=== PATIENT | female | born 1930 | race Caucasian/White ===

== ENCOUNTER → 2017-02-16 | Day surgery (SDC) | payer OTHER ==
[2017-02-15 11:50] VITALS: Ht 154.9 cm; Wt 56.8 kg
[~2017-02-16] VITALS: Ht 154.9 cm; Wt 56.8 kg
[~2017-02-16] MED LIST: ATROPINE SULFATE 0.1 MG/ML 5ML SYR IV PRN; CHOL1000 PO; CYCLOPENTOLATE HCL 1% OP SOLN PER DROP CHARGE OPL SCH; DORZ1SOL6 OPB; EpHEDrine SULFATE INJ 50 MG/ML AMP IV PRN; EpINEphrine INJ 1MG/ML AMP 1 MG/ML AMP ONE; FENTANYL CITRATE INJ 50 MCG/1 ML 2 ML VIAL IV PRN; FLUMAZENIL 0.1 MG/1 ML 10 ML VIAL IV PRN; HYDROmorphone INJ 2 MG/ML SYR/VIAL IV PRN; LABETALOL HCL IV 5 MG/ML 20ML IV PRN; LACTATED RINGER'S 1000ML 500 ML IV SCH; LIDOCAINE 4% OP SOLN DROP CHARGE ONE; LIDOCAINE 4% OP SOLN DROP CHARGE OPL SCH; LIDOCAINE HCL 1% MPF 2 ML VIAL ONE; MEPERIDINE HCL 25 MG/ML CARP IV PRN; MIDAZOLAM HCL 1 MG/ML 2ML VIAL ONE; MOXIFLOXACIN OPH SOLN PER DROP CHARGE ONE; MOXIFLOXACIN OPH SOLN PER DROP CHARGE OPL SCH; MULT-190 PO; NALOXONE HCL 0.4 MG/1 ML VIAL/CARP IV PRN; NATT100C PO; OMEGA PO; ONDANSETRON INJ 2 MG/ML 2 ML VIAL IV PRN; PATIENT'S ALLERGY INFO NEEDS ENTERED SCH; PHENYLEPHRINE 100MCG/ML 5ML SYR IV PRN; PHENYLEPHRINE HCL 2.5% OP SOLN PER DROP CHARGE OPL SCH; POTA99TA PO; POVIDONE-IODINE OP SOLN 30 ML BTL ONE; PROPARACAINE 0.5% OP SOLN PER DROP CHARGE OPL SCH; TOBRAMYCIN/DEXAMETHASONE OPH OINT PER APPLN CHARGE ONE; TROPICAMIDE 1% OP SOLN PER DROP CHARGE OPL SCH; [UNRECOGNIZED DRUG - OTHER] PO; [UNRECOGNIZED DRUG - OTHER] PO
--- NOTE | 2017-02-16 08:40 | History & Physical Bridge - [place] ---
H&P Re-Evaluation Bridge Note: I have examined the patient, reviewed the History & Physical and in the interval since the performance of the History & Physical I have noted the following changes of clinical significance: No changes noted
[2017-02-16 08:48] VITALS: PULSE 79; TEMP 36.5; O2SAT 97
--- NOTE | 2017-02-16 08:48 | History & Physical Bridge - SC ---
H&P Re-Evaluation Bridge Note: Addendum: We are doing cataract surgery on the left eye today.
[2017-02-16] MEDS: PHENYLEPHRINE HCL 2.5% OP SOLN PER DROP CHARGE OPL SCH ×3 (08:58→09:08)
[2017-02-16] MEDS: TROPICAMIDE 1% OP SOLN PER DROP CHARGE OPL SCH ×3 (08:59→09:09)
[2017-02-16] MEDS: CYCLOPENTOLATE HCL 1% OP SOLN PER DROP CHARGE OPL SCH ×3 (09:00→09:10)
[2017-02-16] MEDS: MOXIFLOXACIN OPH SOLN PER DROP CHARGE OPL SCH ×3 (09:01→09:11)
[2017-02-16 09:35] VITALS: BP 208/124
--- NOTE | 2017-02-16 12:07 | Anesthesiology Progress Note ---
Anesthesia Progress Note Date of Service Feb 16, 2017. Progress Notes The patient is an 86 y/o female who was scheduled for a L cataract procedure today with Dr. Edwards. The patient was noted to have a blood pressure of 215/ 133 and 195/113 on arrival. Her other vital signs were stable. The patient had no chest pain or SOB but stated that she was "worked up" and that is why her blood pressure was elevated. The patient does not take any medicine for blood pressure and became defensive when I asked her about her blood pressure. She stated that her primary physician is Dr. Coburn but she does not see him because she "feels fine." I called and spoke to Dr. Coburn who told me that the patient was seen in his office two years ago and told to go to the hospital because of high blood pressure. The patient refused to go to the hospital at that time and cancelled her follow up appointment. He stated that if her EKG is stable today that he would see her in his office today. A 12 lead EKG was done today that showed normal sinus rhythm rate 79 with cannot r/o ant infarct. After the EKG was performed that patient stated that she would refuse to go to the hospital or to Dr. Coburn's office. She said that she did not believe that her blood pressure was a problem and she would see a doctor when she was ready. I explained that she was at a high risk for stroke, heart attack, kidney disease, and other vascular damage but she was adamant that she did not need blood pressure medicine. I again spoke to Dr. Coburn and he stated that he would see her if she wants to schedule an appointment. The patient signed out against medical advice. Dr. Edwards was aware of the situation.
== END | disposition home or self-care (01) ==
LOC: X.SURG 08:15
PROVIDERS: ATTEND Ophthalmology
DX: H26.9 Unspecified cataract (principal); Z53.09 Procedure and treatment not carried out because of other contraindication

== ENCOUNTER 2019-06-19 19:16 | Inpatient (IN) ==
[2019-06-19 20:01] LABS: Hematocrit (blood only) 36.6 % (37-47); Hemoglobin 12.5 g/dL (12.0-16.0); Mean Corpuscular Hgb Conc 34.2 g/dL (32-36); Mean Corpuscular Volume 80.3 fL (80-100); Mean Platelet Volume 9.8 fL (7.4-10.4); Platelet Count 199 K/uL (130-400); RDW Coefficient of Variation 14.4 % (11.5-14.5); RDW Standard Deviation 41.8 fL (36.4-46.3); Red Blood Count 4.56 M/uL (4.2-5.4); White Blood Count 5.53 K/uL (4.8-10.8)
[2019-06-19 20:05] LABS: iSTAT Creatinine 0.6 mg/dl (0.6-1.3); iSTAT Hemoglobin 13.3 g/dl (12.0-16.0); iSTAT Ionized Calcium 1.17 mmol/l (1.12-1.32); iSTAT Potassium 3.9 mEq/L (3.3-5.0)
[2019-06-19] MEDS ORDERED: OPTIRAY 320 125ml IV PRN (20:15)
[2019-06-19 20:16] LABS: Prothrombin Time 10.5 Seconds (9.0-12.0)
[2019-06-19 20:19] LABS: Alanine Aminotransferase 23 U/L (12-78); Albumin Level 4.4 gm/dl (3.4-5.0); Aspartate Aminotransferase 20 U/L (15-37); BUN Creatinine Ratio 18.1 (10-20); Blood Urea Nitrogen 14 mg/dl (7-18); Calcium 9.5 mg/dl (8.5-10.1); Carbon Dioxide 27 mmol/L (21-32); Chloride 99 mmol/L (98-107); Est GFR (African American) 80.6; Est GFR (Non-African American) 69.5; Glucose 102 mg/dl (70-99); Magnesium 2.4 mg/dl (1.8-2.4); Potassium 3.9 mmol/L (3.5-5.1); Sodium 133 mmol/L (136-145)
[2019-06-19 20:23] LABS: Albumin Globulin Ratio 1.3 (0.9-2); Alkaline Phosphatase 72 U/L (45-117); Basophils # (auto) 0.01 K/uL (0-0.2); Basophils % (auto) 0.2 %; Bilirubin,Total 0.3 mg/dl (0.2-1); Eosinophils # (auto) 0.01 K/uL (0-0.5); Eosinophils % (auto) 0.2 %; Globulin 3.5 gm/dl (2.5-4.0); Immature Granulocytes # (auto) 0.02 K/uL (0.00-0.02); Immature Granulocytes % (auto) 0.4 %; Lymphocytes # (auto) 2.75 K/uL (1.2-3.4); Lymphocytes % (auto) 49.7 %; Monocytes # (auto) 1.38 K/uL (0.11-0.59); Neutrophils # (auto) 1.36 K/uL (1.4-6.5); Neutrophils % (auto) 24.5 %; Total Protein 7.9 gm/dl (6.4-8.2); Troponin I < 0.015 ng/ml (0-0.045)
--- NOTE | 2019-06-19 20:40 | CT Scan Report ---
UNENHANCED CT OF THE BRAIN; CT ANGIOGRAM OF THE BRAIN; CT ANGIOGRAM OF THE NECK CLINICAL HISTORY: Strokelike symptoms. COMPARISON STUDY: No priors. TECHNIQUE: Unenhanced axial CT scan of the brain is performed. Subsequently, following the IV adminis tration of 119 of [address] 320, CT angiogram of the head and neck was performed from the aortic arch t o the vertex. Images are reviewed in the axial, sagittal, and coronal planes. 3-D MIPS images are cre ated and assessed. IV contrast was administered without complication. All measurements were calculate d based on NASCET criteria. A dose lowering technique was utilized adhering to the principles of ALA RA. CT DOSE: 985.00 mGy.cm FINDINGS: Brain parenchyma: There is age-related involutional change noting mild subcortical and periventricula r microangiopathic disease. There is no hemorrhage, mass effect, or evidence of acute territorial isc hemia by CT criteria. There is no evidence of enhancing mass lesion on the angiogram phase images. Th e ventricles, sulci, and cisterns are prominent secondary to involutional change. Esparza-white matter d ifferentiation is preserved. No extra-axial fluid collection is seen. 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 Thoracic aorta: Visualized portions of the thoracic aorta are normal in caliber. The aortic arch demo nstrates standard 3-vessel anatomy. Right carotid arterial system: The right common carotid artery is widely patent, as are the right int ernal and carotid arteries. Mild plaque is noted in the carotid bulb. Left carotid arterial system: The left common carotid artery is widely patent, as are the left environmental engineering intern al and terminal carotid arteries. Mild atherosclerotic plaque is noted in the carotid bulb. 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 The vert ebral arteries are otherwise patent in the neck and codominant Subclavian arteries: Widely patent paradise aterally. Intracranial vasculature: There is atherosclerotic calcification of the cavernous carotid arteries. T here is origin of both posterior cerebral arteries. The internal carotid arteries are patent at the skull base, as are the anterior and middle cerebral arteries bilaterally. The vertebrobasilar sy stem and posterior cerebral arteries are patent. There is atherosclerotic irregularity of the right v ertebral artery at the skull base. The left vertebral artery terminates as the PICA. The right verteb ral artery and the basilar artery are diminutive. Mild atherosclerotic regularity seen throughout the middle cerebral arteries with no foci of high-grade stenosis. The aneurysm Or focal vessel cut off s een throughout the intracranial circulation. Jugular veins: Widely patent bilaterally. Dural sinuses: Patent. Lung apices: Partially visualized upper lobe lung parenchyma appears clear. Soft tissues: The visualized pharyngeal soft tissues are normal in appearance noting angiographic pha se technique. The oropharyngeal airway appears widely patent. Bilateral low-attenuation thyroid measu re up to 1.7 cm. The salivary glands are normal in appearance. No cervical lymphadenopathy is seen. Orbits: The bony orbits are intact. Orbital contents are normal in appearance noting bilateral ocular lens implants. Skeletal structures: The skeletal structures are osteopenic. The calvarium appears intact. The cervic al spine is maintained noting multilevel spondylosis. No lytic or blastic lesion is seen. Sinuses and mastoids: The paranasal sinuses are clear. The mastoid air cells are well pneumatized. IMPRESSION: 1. There is no hemorrhage, mass effect, or evidence of acute territorial ischemia by CT criteria. 2. Unremarkable CT angiogram of the brain. 3. 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 4. Otherwise unremarkable CT angiogram of the neck. Electronically signed by: Arturo Wiley M.D. 06/19/2019 8:39 PM
[2019-06-19] MEDS ORDERED: LORazepam 0.5 MG/1 ML VIAL IV STA (20:54)
[2019-06-19 21:30] LABS: Appearance Urine Clear (Clear); Bilirubin Urine Negative (Negative); Blood Urine Negative (Negative); Color Urine Yellow; Glucose Urine UA Negative (Negative); Ketones Urine Negative (Negative); Leukocyte Esterase Urine Negative (Negative); Nitrite Urine Negative (Negative); Protein Urine Negative (Negative); Specific Gravity Urine 1.017 (1.000-1.030); Urobilinogen Urine Negative (Negative); pH Urine 8.5 (4.5-7.5)
[2019-06-19] MEDS ORDERED: ASPIRIN 81 MG CHEW PO STA (23:58)
[2019-06-20] MEDS ORDERED: LABETALOL HCL IV 5 MG/ML 20ML IV PRN (00:51)
[2019-06-20] MEDS ORDERED: NITROGLYCERIN SL 0.4 MG/TAB TAB SL PRN (00:51)
[2019-06-20] MEDS ORDERED: POLYETHYLENE (MIRALAX) 17 GM PACK PO PRN (00:51)
[2019-06-20] MEDS ORDERED: PHARMACIST DISCHARGE MED REC CONSULT PRN (00:51)
[2019-06-20] MEDS ORDERED: ACETAMINOPHEN 325 MG TAB PO PRN (00:51)
[2019-06-20] MEDS ORDERED: ONDANSETRON INJ 2 MG/ML 2 ML VIAL IV PRN (00:51)
--- NOTE | 2019-06-20 02:37 | History and Physical Report ---
DATE OF ADMISSION: 06/19/2019 CHIEF COMPLAINT: Stroke-like symptoms. HISTORY OF PRESENT ILLNESS: This is an 88-year-old female with past medical history significant for chronic cough, hypertension, GERD, anxiety state, presents with stroke-like symptoms. The patient lives alone. She says she is independent. She drives car. Actually, she went to [place] in the car and she moved her stuff in the house today. She was talking to her neighbor when suddenly she started feeling extremely dizzy. The neighbor told her she had a funny face and also had some questionable slurred speech, so they called her nephew and brought her into the hospital. In the ER, her blood pressure was very high sbp in 250's. She was started on nicardipine drip and her symptoms resolved. Currently, she is talking fine. Speech is clear. CT of the head was unremarkable. CTA of the brain showed high-grade stenosis of the origin of left vertebral artery. CTA of the neck was unremarkable. Currently, blood pressure improved with nicardipine drip. Currently, patient's speech is clear. Denies any headache, no blurred vision, no earache, no sore throat, no difficulty swallowing, no chest pain, no shortness of breath. She has some dry cough. No nausea, no abdominal pain. Normal bowel and bladder movements. She is ambulating in the ER to go to bathroom, resting comfortably. ALLERGIES: BACITRACIN, NEOMYCIN, POLYMYXIN B. PAST MEDICAL HISTORY: As mentioned above. PAST SURGICAL HISTORY: Hemorrhoidectomy and banding, appendectomy, sinus surgery, ultrasound-guided breast biopsy. MEDICATIONS: The patient is on lisinopril 20 mg p.o. daily, Cosopt 1 drop both eyes b.i.d., Xalatan 1 drop each eye at bedtime, chlorpheniramine 4 mg 1 tablet q.i.d. FAMILY HISTORY: Significant for father has hypertension and lung disorder. Sister has hypertension. SOCIAL HISTORY: , living alone. No smoking, no alcohol, no drug use. REVIEW OF SYMPTOMS: As per HPI. Rest of review of systems is negative. PHYSICAL EXAMINATION: GENERAL: The patient is alert and oriented, not in acute distress. VITAL SIGNS: Temperature 36.6, pulse 89, respiratory rate 20, currently blood pressure 154/87, when she came in was 246/119, oxygen 99% room air. HEENT: No pallor, no icterus. Pupils equal, round, reactive to light. NECK: No JVD, no neck masses, no carotid bruits. CARDIOVASCULAR: S1, S2 heard, regular rate and rhythm, no murmur, no gallop. RESPIRATORY SYSTEM: Normal AP diameter. No thyromegaly. No wheezing, no crackles. ABDOMEN: Soft, bowel sounds present, nontender. No distention. CENTRAL NERVOUS SYSTEM: Cranial nerves II-XII grossly intact. Power 4/5 in all extremities. Coordination was normal. Megvpb-pt-[id number] test normal. No pronator drift. EXTREMITIES: No edema, no erythema. LABORATORY DATA: WBC 5.5, hemoglobin 12.5, hematocrit 36.6, platelets 199. PT 10.5, INR 1, APTT 28. Sodium 133, potassium 3.9, chloride 99, bicarbonate 27, BUN 14, creatinine 0.7, serum glucose 102, calcium 9.5, magnesium 2.4, total bilirubin 0.3, AST 20, ALT 23, alkaline phosphatase 75. Troponin I less than 0.015. Urinalysis negative. CT of the head unremarkable. 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 CTA Neck unremarkable. EKG: Normal sinus rhythm with rate of 76, no acute ST changes seen. ASSESSMENT AND PLAN: This is an 88-year-old female who presents with stroke-like symptoms,possible transient ischemic attack with uncontrolled blood pressure. Had questionable slurred speech and facial droop, but her symptoms resolved now. Blood pressure has come down on nicardipine drip. Will stop the drip and place on iv labetalol pr. Continue home lisinopril. We will get MRI scan, echocardiogram, speech evaluation, and PT/OT and neuro evaluation. Monitor closely on tele floor. Will adjust her blood pressure meds while she is in the hospital. Deep venous thrombosis prophylaxis, SCDs. DISPOSITION: Admit to tele floor. Expect to discharge home and follow with family doctor. PT and OT prior to discharge. Social service to help with discharge planning. ANDREW
--- NOTE | 2019-06-20 03:00 | Emergency Department Note ---
Entered by Lynne Royal acting as a scribe for History of Present Illness General Chief complaint: TIA Symptoms Stated complaint: SLURRED SPEECH, DIZZY, LT ARM TINGLING INTO LEG Time Seen by Provider: 06/19/19 19:23 Source: patient Mode of arrival: EMS Limitations: no limitations History of Present Illness Onset (ago): hour(s) less than 1 Location: head Radiation: non-radiation Pain Consistency: + now resolved Maximum Pain Intensity: 0 Relieved By: + none Exacerbated By: + none Associated symptoms: + other (+numbness and tingling in left side of face, +speech slurring, -abdominal pain); no headaches Treatments prior to arrival: none The patient is an 88year old female who presents to the ED with complaints of stroke symptoms. She reports approximately 45 minutes ago, she got dizzy and experienced speech slurring and numbness and tingling in the left side of her face. She notes she was speaking with her neighbor when the symptoms started. She states she feels much better here in the ED. She never lost the ability to ambulate during the episode. The patient admits to a history of hypertension and states she took her BP medication this morning. She notes she has not eaten much today and "worked all day long" inside her home today. She denies any history of prior stroke. She denies any headache or abdominal pain. Home Medications Home Medications Medication Instructions Recorded Confirmed Type Zioptan (PF) 1 drp OPHTHALMIC (EYE) PM 12/29/18 06/19/19 History dorzolamide-timolol (PF) 1 drp OPHTHALMIC (EYE) BID 12/29/18 06/19/19 History lisinopril 20 mg PO DAILY 06/19/19 06/19/19 History prednisolone acetate [Pred Forte] 1 drp OPB QID 06/19/19 06/19/19 History Allergies Allergy/AdvReac Type Severity Reaction Status Date / Time bacitracin Allergy Unknown Anaphylaxis Verified 06/19/19 20:39 neomycin Allergy Unknown Anaphylaxis Verified 06/19/19 20:39 polymyxin B Allergy Unknown Anaphylaxis Verified 06/19/19 20:39 Past Med/Surg History Medical History Exertional shortness of breath Glaucoma Hearing deficit BL COBB Surgical History H/O removal of cyst FROM SCALP History of appendectomy History of cataract surgery History of hemorrhoidectomy History of lumpectomy of left breast History of sinus surgery Social History Preferred Language: Citizen Of [place] Communication Ability: Effective Ride Attendant Required: No Beliefs That Will Affect Care: None Current Living Situation: Alone Other Information That Helps Us Care for You: No Feels Safe at Home: Yes Safety Concerns: Feels Safe At This Time Smoking Status: Never smoker Second Hand Exposure: No ; Hx Alcohol Use: No Hx Substance Use: No Review of Systems See HPI for pertinent positives & negatives. and A total of 10 systems reviewed and were otherwise negative Physical Exam Vital Signs Vital Signs - 24 hr 06/19/19 19:18 06/19/19 19:32 06/19/19 19:38 Temperature 36.6 C Temperature Source Oral Sepsis Recent Fever Within 48 Hours No Sepsis New/Unexplained Change in Mental Status No Sepsis Action Taken by Nursing No Action Required Pulse Rate 78 86 78 Pulse Rate [Right Finger] Pulse Rate from SpO2 Sensor 78 Respiratory Rate 18 27 H 28 H Respiratory Effort / Characteristics Respiratory Depth Respiratory Pattern Blood Pressure 257/123 H 248/109 H Blood Pressure [Right Arm] Blood Pressure Mean 167 155 Blood Pressure Mean [Right Arm] Blood Pressure Position [Right Arm] Pulse Oximetry 99 99 Oxygen Delivery Method Room Air 06/19/19 19:45 06/19/19 20:00 06/19/19 20:01 Temperature Temperature Source Sepsis Recent Fever Within 48 Hours Sepsis New/Unexplained Change in Mental Status Sepsis Action Taken by Nursing Pulse Rate 74 85 77 Pulse Rate [Right Finger] Pulse Rate from SpO2 Sensor 74 Respiratory Rate 24 19 26 H Respiratory Effort / Characteristics Respiratory Depth Respiratory Pattern Blood Pressure 246/119 H Blood Pressure [Right Arm] Blood Pressure Mean 161 Blood Pressure Mean [Right Arm] Blood Pressure Position [Right Arm] Pulse Oximetry 100 Oxygen Delivery Method 06/19/19 20:04 06/19/19 20:27 06/19/19 20:30 Temperature Temperature Source Sepsis Recent Fever Within 48 Hours Sepsis New/Unexplained Change in Mental Status Sepsis Action Taken by Nursing Pulse Rate 91 H 87 Pulse Rate [Right Finger] 72 Pulse Rate from SpO2 Sensor Respiratory Rate 18 21 18 Respiratory Effort / Characteristics Non-Labored Spontaneous Respiratory Depth Normal Respiratory Pattern Regular Blood Pressure Blood Pressure [Right Arm] 246/119 H Blood Pressure Mean Blood Pressure Mean [Right Arm] 161 Blood Pressure Position [Right Arm] Lying Pulse Oximetry 99 Oxygen Delivery Method Room Air 06/19/19 20:32 06/19/19 20:45 06/19/19 21:00 Temperature Temperature Source Sepsis Recent Fever Within 48 Hours Sepsis New/Unexplained Change in Mental Status Sepsis Action Taken by Nursing Pulse Rate 81 98 H 90 Pulse Rate [Right Finger] Pulse Rate from SpO2 Sensor 81 Respiratory Rate 24 30 H 23 Respiratory Effort / Characteristics Respiratory Depth Respiratory Pattern Blood Pressure 231/107 H 230/117 H Blood Pressure [Right Arm] Blood Pressure Mean 148 154 Blood Pressure Mean [Right Arm] Blood Pressure Position [Right Arm] Pulse Oximetry 99 Oxygen Delivery Method 06/19/19 21:01 06/19/19 21:06 06/19/19 21:15 Temperature Temperature Source Sepsis Recent Fever Within 48 Hours Sepsis New/Unexplained Change in Mental Status Sepsis Action Taken by Nursing Pulse Rate 93 H 95 H 91 H Pulse Rate [Right Finger] Pulse Rate from SpO2 Sensor Respiratory Rate 22 28 H 20 Respiratory Effort / Characteristics Respiratory Depth Respiratory Pattern Blood Pressure 204/97 H 203/95 H 199/97 H Blood Pressure [Right Arm] Blood Pressure Mean 132 131 131 Blood Pressure Mean [Right Arm] Blood Pressure Position [Right Arm] Pulse Oximetry Oxygen Delivery Method 06/19/19 21:30 06/19/19 21:31 06/19/19 21:45 Temperature Temperature Source Sepsis Recent Fever Within 48 Hours Sepsis New/Unexplained Change in Mental Status Sepsis Action Taken by Nursing Pulse Rate 88 88 84 Pulse Rate [Right Finger] Pulse Rate from SpO2 Sensor 89 87 86 Respiratory Rate 27 H 26 H 22 Respiratory Effort / Characteristics Respiratory Depth Respiratory Pattern Blood Pressure 166/81 H 185/86 H Blood Pressure [Right Arm] Blood Pressure Mean 109 119 Blood Pressure Mean [Right Arm] Blood Pressure Position [Right Arm] Pulse Oximetry 95 96 94 Oxygen Delivery Method 06/19/19 21:55 06/19/19 22:01 06/19/19 22:15 Temperature Temperature Source Sepsis Recent Fever Within 48 Hours Sepsis New/Unexplained Change in Mental Status Sepsis Action Taken by Nursing Pulse Rate 92 H 87 88 Pulse Rate [Right Finger] Pulse Rate from SpO2 Sensor 92 H Respiratory Rate 21 16 19 Respiratory Effort / Characteristics Respiratory Depth Respiratory Pattern Blood Pressure 185/86 H 165/117 H 149/81 H Blood Pressure [Right Arm] Blood Pressure Mean 119 133 103 Blood Pressure Mean [Right Arm] Blood Pressure Position [Right Arm] Pulse Oximetry 99 Oxygen Delivery Method 06/19/19 22:30 06/19/19 22:45 06/19/19 23:00 Temperature Temperature Source Sepsis Recent Fever Within 48 Hours Sepsis New/Unexplained Change in Mental Status Sepsis Action Taken by Nursing Pulse Rate 79 78 81 Pulse Rate [Right Finger] Pulse Rate from SpO2 Sensor Respiratory Rate 26 H 29 H 27 H Respiratory Effort / Characteristics Respiratory Depth Respiratory Pattern Blood Pressure 147/70 H Blood Pressure [Right Arm] Blood Pressure Mean 95 Blood Pressure Mean [Right Arm] Blood Pressure Position [Right Arm] Pulse Oximetry Oxygen Delivery Method 06/19/19 23:01 06/19/19 23:15 06/19/19 23:16 Temperature Temperature Source Sepsis Recent Fever Within 48 Hours Sepsis New/Unexplained Change in Mental Status Sepsis Action Taken by Nursing Pulse Rate 82 89 91 H Pulse Rate [Right Finger] Pulse Rate from SpO2 Sensor Respiratory Rate 28 H 22 18 Respiratory Effort / Characteristics Respiratory Depth Respiratory Pattern Blood Pressure 134/65 127/76 Blood Pressure [Right Arm] Blood Pressure Mean 88 93 Blood Pressure Mean [Right Arm] Blood Pressure Position [Right Arm] Pulse Oximetry Oxygen Delivery Method 06/19/19 23:23 Temperature Temperature Source Sepsis Recent Fever Within 48 Hours Sepsis New/Unexplained Change in Mental Status Sepsis Action Taken by Nursing Pulse Rate 89 Pulse Rate [Right Finger] Pulse Rate from SpO2 Sensor Respiratory Rate 23 Respiratory Effort / Characteristics Respiratory Depth Respiratory Pattern Blood Pressure 154/87 H Blood Pressure [Right Arm] Blood Pressure Mean 109 Blood Pressure Mean [Right Arm] Blood Pressure Position [Right Arm] Pulse Oximetry Oxygen Delivery Method GENERAL: Awake, alert, well-appearing, in no acute distress HENT: Normocephalic, atraumatic. Oropharynx unremarkable. EYES: Normal conjunctiva. Sclera non-icteric. NECK: Supple. No nuchal rigidity. FROM. No JVD. RESPIRATORY: Clear to auscultation. CARDIAC: Regular rate, normal rhythm. Extremities warm and well perfused. Pulses equal. ABDOMEN: Soft, non-distended. No tenderness to palpation. No rebound or guarding. No masses. RECTAL: Deferred. MUSCULOSKELETAL: Chest examination reveals no tenderness. The back is symmetrical on inspection without obvious abnormality. There is no CVA tenderness to palpation. No joint edema. LOWER EXTREMITIES: Calves are equal size bilaterally and non-tender. No edema. No discoloration. NEURO: Normal sensorium. No sensory or motor deficits noted. SKIN: No rash or jaundice noted. Course 1926: The patient was evaluated in room B12B and a complete history and physical were performed. 2104: I reevaluated the patient. I discussed her results and my recommendation she remain in the hospital for further evaluation and management and she verbalized complete understanding and agreement. 2214: [facility] The patient will be further evaluated. Consultations Consultation #1: I [facility] the [facility] The patient will be further evaluated. Time: 22:15 Administered Medications Discontinued Medications Aspirin (Aspirin Chew) 324 mg PO NOW STA Stop: 06/19/19 23:59 Last Admin: 06/20/19 00:10 Dose: 324 mg Documented by: [id number] Nicardipine HCl 25 mg/ Sodium (Chloride) 250 mls @ 50 mls/hr IV .Q5H DAMI; Protocol Stop: 07/19/19 19:44 Last Titration: 06/19/19 23:39 Dose: 0 mg/hr, 0 mls/hr Documented by: [id number] Titration: 06/19/19 22:41 Dose: 5 mg/hr, 50 mls/hr Documented by: [id number] Titration: 06/19/19 22:01 Dose: 7.5 mg/hr, 75 mls/hr Documented by: [id number] Admin: 06/19/19 20:29 Dose: 5 mg/hr, 50 mls/hr Documented by: [id number] Cosigned by: [id number] Lorazepam (Ativan) 0.5 mg in 1 mls @ 1 mls/min IV NOW STA Stop: 06/19/19 20:55 Last Admin: 06/19/19 21:24 Dose: 1 mls/min Documented by: [id number] Ioversol (Optiray 320 125ml) 119 ml IV ONCE PRN PRN Reason: Interaction Checking Stop: 06/23/19 20:14 Last Admin: 06/19/19 20:15 Dose: 119 ml Documented by: [id number] Medical Decision Making Differential Diagnosis Differential Diagnosis includes but is not limited to dehydration, stroke, anemia, hypoglycemia, hyponatremia, hypernatremia, urinary tract infection, pneumonia, bronchitis, sepsis, gastroenteritis, additional abdominal pathology, metabolic abnormalities and infections. Medical Records Attestation: I reviewed the patient's medical records. Home Medications Current Medication List: was personally reviewed by me Laboratory Data Attestation: I reviewed the patient's lab results. Result diagrams: 06/19/19 19:40 06/19/19 19:40 Lab Results 06/19/19 06/19/19 06/19/19 Range/Units 19:40 19:40 19:40 WBC 5.53 (4.8-10.8) K/uL RBC 4.56 (4.2-5.4) M/uL Hgb 12.5 (12.0-16.0) g/dL POC Hgb (12.0-16.0) g/dl Hct 36.6 L (37-47) % POC Hct (37-47) % MCV 80.3 (80-100) fL MCH 27.4 (25-34) pg MCHC 34.2 (32-36) g/dL RDW Std Deviation 41.8 (36.4-46.3) fL RDW Coeff of Андрей 14.4 (11.5-14.5) % Plt Count 199 (130-400) K/uL MPV 9.8 (7.4-10.4) fL Immature Gran % (Auto) 0.4 % Neut % (Auto) 24.5 % Lymph % (Auto) 49.7 % [place] % (Auto) 25.0 % Eos % (Auto) 0.2 % Baso % (Auto) 0.2 % Immature Gran # (Auto) 0.02 (0.00-0.02) K/uL Neut # (Auto) 1.36 L (1.4-6.5) K/uL Lymph # (Auto) 2.75 (1.2-3.4) K/uL [place] # (Auto) 1.38 H (0.11-0.59) K/uL Eos # (Auto) 0.01 (0-0.5) K/uL Baso # (Auto) 0.01 (0-0.2) K/uL PT 10.5 (9.0-12.0) Seconds INR 1.0 (0.9-1.1) APTT 28.0 (21.0-31.0) Seconds PTT Ratio 1.0 POC Sodium (135-144) mEq/L Sodium 133 L (136-145) mmol/L POC Potassium (3.3-5.0) mEq/L Potassium 3.9 (3.5-5.1) mmol/L POC Chloride (101-112) mEq/L Chloride 99 (98-107) mmol/L Carbon Dioxide 27 (21-32) mmol/L POC Total CO2 (24-31) mEq/l Anion Gap 7.0 (3-11) POC Anion Gap (16-25) mmol/L POC BUN (7-18) mg/dl BUN 14 (7-18) mg/dl Creatinine 0.76 (0.6-1.2) mg/dl POC Creatinine (0.6-1.3) mg/dl Est Cr Clr Drug Dosing 36.0 ml/min Est GFR ( Amer) 80.6 Est GFR (Non-Af Amer) 69.5 BUN/Creatinine Ratio 18.1 (10-20) Glucose 102 H (70-99) mg/dl POC Glucose (other) (70-99) mg/dl Calcium 9.5 (8.5-10.1) mg/dl POC Ioniz Calcium [place] (1.12-1.32) mmol/l Magnesium 2.4 (1.8-2.4) mg/dl Total Bilirubin 0.3 (0.2-1) mg/dl AST 20 (15-37) U/L ALT 23 (12-78) U/L Alkaline Phosphatase 72 (45-117) U/L Troponin I < 0.015 (0-0.045) ng/ml Total Protein 7.9 (6.4-8.2) gm/dl Albumin 4.4 (3.4-5.0) gm/dl Globulin 3.5 (2.5-4.0) gm/dl Albumin/Globulin Ratio 1.3 (0.9-2) Urine Color Urine Appearance (Clear) Urine pH (4.5-7.5) Ur Specific [place] (1.000-1.030) Urine Protein (Negative) Urine Glucose (UA) (Negative) Urine Ketones (Negative) Urine Blood (Negative) Urine Nitrite (Negative) Urine Bilirubin (Negative) Urine Urobilinogen (Negative) Ur Leukocyte Esterase (Negative) 06/19/19 06/19/19 Range/Units 19:40 19:46 WBC (4.8-10.8) K/uL RBC (4.2-5.4) M/uL Hgb (12.0-16.0) g/dL POC Hgb 13.3 (12.0-16.0) g/dl Hct (37-47) % POC Hct 39 (37-47) % MCV (80-100) fL MCH (25-34) pg MCHC (32-36) g/dL RDW Std Deviation (36.4-46.3) fL RDW Coeff of Андрей (11.5-14.5) % Plt Count (130-400) K/uL MPV (7.4-10.4) fL Immature Gran % (Auto) % Neut % (Auto) % Lymph % (Auto) % [place] % (Auto) % Eos % (Auto) % Baso % (Auto) % Immature Gran # (Auto) (0.00-0.02) K/uL Neut # (Auto) (1.4-6.5) K/uL Lymph # (Auto) (1.2-3.4) K/uL [place] # (Auto) (0.11-0.59) K/uL Eos # (Auto) (0-0.5) K/uL Baso # (Auto) (0-0.2) K/uL PT (9.0-12.0) Seconds INR (0.9-1.1) APTT (21.0-31.0) Seconds PTT Ratio POC Sodium 131 L (135-144) mEq/L Sodium (136-145) mmol/L POC Potassium 3.9 (3.3-5.0) mEq/L Potassium (3.5-5.1) mmol/L POC Chloride 96 L (101-112) mEq/L Chloride (98-107) mmol/L Carbon Dioxide (21-32) mmol/L POC Total CO2 22 L (24-31) mEq/l Anion Gap (3-11) POC Anion Gap 18.0 (16-25) mmol/L POC BUN 14 (7-18) mg/dl BUN (7-18) mg/dl Creatinine (0.6-1.2) mg/dl POC Creatinine 0.6 (0.6-1.3) mg/dl Est Cr Clr Drug Dosing ml/min Est GFR ( Amer) Est GFR (Non-Af Amer) BUN/Creatinine Ratio (10-20) Glucose (70-99) mg/dl POC Glucose (other) 105 H (70-99) mg/dl Calcium (8.5-10.1) mg/dl POC Ioniz Calcium [place] 1.17 (1.12-1.32) mmol/l Magnesium (1.8-2.4) mg/dl Total Bilirubin (0.2-1) mg/dl AST (15-37) U/L ALT (12-78) U/L Alkaline Phosphatase (45-117) U/L Troponin I (0-0.045) ng/ml Total Protein (6.4-8.2) gm/dl Albumin (3.4-5.0) gm/dl Globulin (2.5-4.0) gm/dl Albumin/Globulin Ratio (0.9-2) Urine Color Yellow Urine Appearance Clear (Clear) Urine pH 8.5 H (4.5-7.5) Ur Specific [place] 1.017 (1.000-1.030) Urine Protein Negative (Negative) Urine Glucose (UA) Negative (Negative) Urine Ketones Negative (Negative) Urine Blood Negative (Negative) Urine Nitrite Negative (Negative) Urine Bilirubin Negative (Negative) Urine Urobilinogen Negative (Negative) Ur Leukocyte Esterase Negative (Negative) Imaging Data Radiologist's Impression: Radiology results as stated below per my review and the radiologist's interpretation: UNENHANCED CT OF THE BRAIN; CT ANGIOGRAM OF THE BRAIN; CT ANGIOGRAM OF THE NECK CLINICAL HISTORY: Strokelike symptoms. COMPARISON STUDY: No priors. TECHNIQUE: Unenhanced axial CT scan of the brain is performed. Subsequently, following the IV administration of 119 of Optiray 320, CT angiogram of the head and neck was performed from the aortic arch to the vertex. Images are reviewed in the axial, sagittal, and coronal planes. 3-D MIPS images are created and assessed. IV contrast was administered without complication. All measurements were calculated based on NASCET criteria. A dose lowering technique was utilized adhering to the principles of ALARA. CT DOSE: 985.00 mGy.cm FINDINGS: Brain parenchyma: There is age-related involutional change noting mild subcor tical and periventricular microangiopathic disease. There is no hemorrhage, mass effect, or evidence of acute territorial ischemia by CT criteria. There is no evidence of enhancing mass lesion on the angiogram phase images. The ventricles, sulci, and cisterns are prominent secondary to involutional change. Esparza-white matter differentiation is preserved. No extra-axial fluid collection is seen. 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 Thoracic aorta: Visualized portions of the thoracic aorta are normal in caliber. The aortic arch demonstrates standard 3-vessel anatomy. Right carotid arterial system: The right common carotid artery is widely patent, as are the right internal and carotid arteries. Mild plaque is noted in the carotid bulb. Left carotid arterial system: The left common carotid artery is widely patent, as are the left internal and terminal carotid arteries. Mild atherosclerotic plaque is noted in the carotid bulb. 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 The vertebral arteries are otherwise patent in the neck and codominant Subclavian arteries: Widely patent bilaterally. Intracranial vasculature: There is atherosclerotic calcification of the cavernous carotid arteries. There is origin of both posterior cerebral arteries. The internal carotid arteries are patent at the skull base, as are the anterior and middle cerebral arteries bilaterally. The vertebrobasilar system and posterior cerebral arteries are patent. There is atherosclerotic irregularity of the right vertebral artery at the skull base. The left vertebral artery terminates as the PICA. The right vertebral artery and the basilar artery are diminutive. Mild atherosclerotic regularity seen throughout the middle ce rebral arteries with no foci of high-grade stenosis. The aneurysm Or focal vessel cut off seen throughout the intracranial circulation. Jugular veins: Widely patent bilaterally. Dural sinuses: Patent. Lung apices: Partially visualized upper lobe lung parenchyma appears clear. Soft tissues: The visualized pharyngeal soft tissues are normal in appearance noting angiographic phase technique. The oropharyngeal airway appears widely patent. Bilateral low-attenuation thyroid measure up to 1.7 cm. The salivary glands are normal in appearance. No cervical lymphadenopathy is seen. Orbits: The bony orbits are intact. Orbital contents are normal in appearance noting bilateral ocular lens implants. Skeletal structures: The skeletal structures are osteopenic. The calvarium appears intact. The cervical spine is maintained noting multilevel spondylosis. No lytic or blastic lesion is seen. Sinuses and mastoids: The paranasal sinuses are clear. The mastoid air cells are well pneumatized. IMPRESSION: 1. There is no hemorrhage, mass effect, or evidence of acute territorial ischemia by CT criteria. 2. Unremarkable CT angiogram of the brain. 3. 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 4. Otherwise unremarkable CT angiogram of the neck. Electronically signed by: Arturo Wiley M.D. 06/19/2019 8:39 PM ECG Data Attestation: I personally reviewed and interpreted this ECG as follows: Indication: weakness Rate (beats per minute): 76 Rhythm: normal sinus Findings: no ST depression and no ST elevation Blood Pressure Blood Pressure Findings: Elevated blood pressure Blood Pressure Disposition: further management by hospitalist MDM Narrative This is a 88-year-old female who presents emergency department after what appears to be a TIA. The patient was aphasic with a facial droop however her symptoms have currently resolved. Despite this her blood pressure remains significantly elevated here in the emergency department. Because of this the patient was placed on a nicardipine drip. The patient currently has no complaints however does appear very anxious. She was given some Ativan here in the emergency department. Repeat examination revealed improvement the patient's symptoms. CAT scan of the head does not show any acute process however the patient does have a stenosis in her artery on CTA. She does not have an elevation in her white blood cell count has a normal renal profile. I did discuss the case with the hospitalist service who did agree to admit the patient. Patient family were in agreement with the treatment plan. Impression & Plan TIA (transient ischemic attack), Hypertensive urgency Critical Care Time I have personally spent greater than 30 minutes of critical care time in the direct management of this patient. This includes bedside care, interpretation of diagnostic studies, and testing, discussion with consultants, patient, and family members, and other required patient management activities. This 30 m inutes is in excess of all separately billable procedures. Discharge Plan Visit Data *Final* Discharge Date/Time: 06/20/19 00:21 Chief Complaint: TIA Symptoms Stated Complaint: SLURRED SPEECH, DIZZY, LT ARM TINGLING INTO LEG ED Provider: Jem Nelson Discharge Problem: TIA (transient ischemic attack), Hypertensive urgency Patient Disposition: Admitted As Inpatient Discharge Instructions Interventions: ED Discharge Assessment Last Done: 06/20/19 00:21 The scribe's documentation has been prepared under my direction and personally reviewed by me in its entirety. I confirm that the note above accurately reflects all work, treatment, procedures, and medical decision making performed by me.
[2019-06-20] MEDS ORDERED: GADOBUTROL 65ML VIAL IV PRN (05:49)
[2019-06-20 06:51] LABS: Basophils # (auto) 0.01 K/uL (0-0.2); Basophils % (auto) 0.2 %; Eosinophils # (auto) 0.01 K/uL (0-0.5); Eosinophils % (auto) 0.2 %; Hematocrit (blood only) 37.9 % (37-47); Hemoglobin 12.8 g/dL (12.0-16.0); Immature Granulocytes # (auto) 0.02 K/uL (0.00-0.02); Immature Granulocytes % (auto) 0.4 %; Lymphocytes # (auto) 1.68 K/uL (1.2-3.4); Lymphocytes % (auto) 30.5 %; Mean Corpuscular Hgb Conc 33.8 g/dL (32-36); Mean Platelet Volume 9.5 fL (7.4-10.4); Monocytes # (auto) 1.82 K/uL (0.11-0.59); Monocytes % (auto) 33.1 %; Neutrophils # (auto) 1.96 K/uL (1.4-6.5); Neutrophils % (auto) 35.6 %; Platelet Count 192 K/uL (130-400); RDW Coefficient of Variation 14.2 % (11.5-14.5); RDW Standard Deviation 41.4 fL (36.4-46.3); Red Blood Count 4.74 M/uL (4.2-5.4)
--- NOTE | 2019-06-20 06:53 | Magnetic Resonance Report ---
MR brain wo/w con CLINICAL HISTORY: tia mental status change COMPARISON STUDY: No previous studies for comparison. TECHNIQUE: Utilizing a 1.5 Julisa magnet and dedicated coil, multiplanar, multiecho imaging of the br ain was performed pre and postcontrast administration. IV administration of 8 mL of Gadavist contras t was uneventful. FINDINGS: Diffusion images are negative for an acute ischemic event. Findings of age-related atrophy and chronic small vessel change throughout both cerebral hemispheres. Slight compensatory prominence of the ventricular system. Internal auditory canals are unremarkable. Sella and parasellar regions are unremarkable. IMPRESSION: 1. No acute process. 2. Age-related atrophy and chronic small vessel change The above report was generated using voice recognition software. It may contain grammatical, syntax or spelling errors. Electronically signed by: Del Chisholm M.D. 06/20/2019 6:51 AM
[2019-06-20 06:55] LABS: Estimated Average Glucose 123 mg/dl; Hemoglobin A1C 5.9 % (4.5-5.6)
[2019-06-20 07:26] LABS: BUN Creatinine Ratio 15.6 (10-20); Calcium 9.2 mg/dl (8.5-10.1); Creatinine Clr Calc Pharmacy 38.6 ml/min; Est GFR (African American) 87.5; Est GFR (Non-African American) 75.5; Potassium 3.7 mmol/L (3.5-5.1)
[2019-06-20] MEDS: ATORVASTATIN 40 MG TAB PO SCH (08:35)
[2019-06-20] MEDS: ASPIRIN 81 MG ECTAB PO SCH (08:35)
[2019-06-20] MEDS: DORZOLAMIDE/TIMOLOL 22.3/6.8MG/ML 10 ML BTL OP SCH ×2 (08:35→17:39)
[2019-06-20] MEDS ORDERED: LISINOPRIL 20 MG TAB PO SCH (09:00)
[2019-06-20] MEDS: PREDNISOLONE ACETATE 1% OP SCH ×4 (12:38→20:22)
--- NOTE | 2019-06-20 16:04 | Neurology Consultation ---
Date of Consultation June 20, 2019 Assessment & Plan (1) TIA (transient ischemic attack): 1. hypertensive - recurrent TIA 2. optimize HTN, HLD, DM LDL <70 3. start aspirin 81 mg only 4. TTE- no ASD 5. PT/OT speech for discharge planning follow up with neurology 4-6 weeks Leticia Woflf PAC schedule (2) Hypertensive urgency: as above Supervising Physician Co-Signing Physician Notes Patient was seen and examined. Patient awake in bed. Family at bedside. Reports feeling dizzy yesterday with certain head positions and some changes in speech. Denies dizziness at this time. She reports history of labile blood pressures and difficulty sleeping on he back due to neck pain. On examine her speech is clear. Comprehension is intact. No facial asymmetry. Tongue midline. No ataxia or tremor. No clonus. MRI brain reviewed and Negative for acute ischemic stroke. CTA head and neck shows high grade stenosis of the left ICA. A 88 year old woman admitted with accelerated blood pressures and reported intermittent dizziness and speech changes. DDx: Hypertensive encephalopathy Vs TIA (less likely). CTA head and neck shows high grade left vertebral stenosis (likely incidental). - Recommend normalization of blood pressures gradually. SBP goal< 140 mm Hg, DBP< 90 mm Hg - Recommend starting ASA and high intensity statin - TTE with SHunt study - Telemetry - Please check HA1c and TSH if not already performed History of Present Illness Reason for Consultation: recurrent TIA Requesting Physician: Jj Martinez MD Attending Physician: Jj Martinez MD History of Present Illness Maggi is a 88 year old female with PMH - chronic cough, hypertension, GERD, anxiety state, presents with stroke-like symptoms. She lives alone and is independent and still drives. She was in [place] talking to a neighbor when she started feeling dizzy. The neighbor told her she had a funny face and also had some questionable slurred speech, so they called her nephew and brought her into the hospital. In the ER, her blood pressure SBP was 250's. She was started on nicardipine drip and her symptoms resolved. She states she wants to go home but she know she needs to stay until tomorrow. denies CP, SOB, abdominal pain, one sided weakness, numbness tingling, N, V, slurred speech, vision changes, swallowing issues. Allergies Allergy/AdvReac Type Severity Reaction Status Date / Time bacitracin Allergy Unknown Anaphylaxis Verified 06/19/19 20:39 neomycin Allergy Unknown Anaphylaxis Verified 06/19/19 20:39 polymyxin B Allergy Unknown Anaphylaxis Verified 06/19/19 20:39 Home Medications Home Medications Medication Instructions Recorded Confirmed Type Zioptan (PF) 1 drp OPHTHALMIC (EYE) PM 12/29/18 06/19/19 History dorzolamide-timolol (PF) 1 drp OPHTHALMIC (EYE) BID 12/29/18 06/19/19 History lisinopril 20 mg PO DAILY 06/19/19 06/19/19 History prednisolone acetate [Pred Forte] 1 drp OPB QID 06/19/19 06/19/19 History Patient History Medical History Exertional shortness of breath Glaucoma Hearing deficit BL COBB Surgical History H/O removal of cyst FROM SCALP History of appendectomy History of cataract surgery History of hemorrhoidectomy History of lumpectomy of left breast History of sinus surgery Social History Preferred Language: Finnish Communication Ability: Effective Ladies' Locker Room Attendant Required: No Beliefs That Will Affect Care: None marital status: / Current Living Situation: Alone Other Information That Helps Us Care for You: No Feels Safe at Home: Yes Safety Concerns: Feels Safe At This Time Smoking Status: Never smoker Second Hand Exposure: No ; Hx Alcohol Use: No Hx Substance Use: No Physical Exam Physical Exam: Physical Exam: Constitutional: appearance nourished, healthy and normal Ears, Nose, Mouth and Throat: mucous membranes moist, no injection and skin normal, eyes normal Cardiovascular: normal S-1 and S-2 and regular rate and rhythm Respiratory: clear to auscultation (CTA) and no rales, rhonchi or wheeze Musculoskeletal: no peripheral edema and good distal pulses Skin: no stigmata of neurocutaneous disease noted and normal and intact Eyes: extraocular muscles intact (EOMI) and pupils equal, round and reactive to light (PERRL) NEUROLOGIC EXAMINATION: Mental status: Alert and interactive Oriented to full date and location Oriented to person Speech fluent with no evidence of aphasia Cranial Nerves smile eye brow raise symmetric, tongue midline Reflexes: Deep tendon reflexes were symmetrical and graded 2/5. Sensory: intact to light and cool touch Coordination: finger to nose no bi pass, Gait/Stance: Posture normal. Motor: Negative for pronator drift of out stretched arms with eyes closed. Strength: biceps triceps hand combination technician 5/5 bilaterally hip flex patellar plantar flex ext 5/5 Results & Data Vital Signs (Past 12 Hours) Vital Signs Temp Pulse Pulse Resp BP Pulse Ox 06/20/19 15:51 36.2 C L 77 20 199/95 H 98 06/20/19 11:30 36.4 C L 66 18 172/90 H 98 06/20/19 08:00 69 06/20/19 07:51 36.3 C L 83 19 177/92 H 97 06/20/19 04:10 36.7 C 75 20 129/80 96 Laboratory Results Abnormal lab results 06/19/19 06/19/19 06/19/19 Range/Units 19:40 19:40 19:40 Hct 36.6 L (37-47) % Neut # (Auto) 1.36 L (1.4-6.5) K/uL [place] # (Auto) 1.38 H (0.11-0.59) K/uL POC Sodium (135-144) mEq/L Sodium 133 L (136-145) mmol/L POC Chloride (101-112) mEq/L POC Total CO2 (24-31) mEq/l Glucose 102 H (70-99) mg/dl POC Glucose (other) (70-99) mg/dl Hemoglobin A1c (4.5-5.6) % Cholesterol (0-200) mg/dl Urine pH 8.5 H (4.5-7.5) 06/19/19 06/20/19 06/20/19 Range/Units 19:46 06:33 06:33 Hct (37-47) % Neut # (Auto) (1.4-6.5) K/uL [place] # (Auto) 1.82 H (0.11-0.59) K/uL POC Sodium 131 L (135-144) mEq/L Sodium 135 L (136-145) mmol/L POC Chloride 96 L (101-112) mEq/L POC Total CO2 22 L (24-31) mEq/l Glucose 108 H (70-99) mg/dl POC Glucose (other) 105 H (70-99) mg/dl Hemoglobin A1c (4.5-5.6) % Cholesterol 215 H (0-200) mg/dl Urine pH (4.5-7.5) 06/20/19 Range/Units 06:33 Hct (37-47) % Neut # (Auto) (1.4-6.5) K/uL [place] # (Auto) (0.11-0.59) K/uL POC Sodium (135-144) mEq/L Sodium (136-145) mmol/L POC Chloride (101-112) mEq/L POC Total CO2 (24-31) mEq/l Glucose (70-99) mg/dl POC Glucose (other) (70-99) mg/dl Hemoglobin A1c 5.9 H (4.5-5.6) % Cholesterol (0-200) mg/dl Urine pH (4.5-7.5) Diagnostic Findings CT head/CTA neck/head - There is no hemorrhage, mass effect, or evidence of acute territorial ischemia by CT criteria. Unremarkable CT angiogram of the brain. 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 Otherwise unremarkable CT angiogram of the neck. MRI brain -No acute process. Age-related atrophy and chronic small vessel change TTE EF 65-70% no ASD
[2019-06-20] MEDS ORDERED: CLOPIDOGREL BISULFATE 75 MG TAB PO SCH (16:45)
[2019-06-20] MEDS: AMLODIPINE BESYLATE 5 MG TAB PO SCH (17:39)
--- NOTE | 2019-06-20 18:27 | Hospitalist Progress Note ---
Date of Service June 20, 2019 Assessment & Plan (1) Hypertensive urgency: (2) TIA (transient ischemic attack): 88 year old female with PMH - chronic cough, hypertension, GERD, anxiety state, presents with stroke-like symptoms. She lives alone and is independent and still drives. She was in [place] talking to a neighbor when she started feeling dizzy. The neighbor told her she had a funny face and also had some questionable slurred speech, so they called her nephew and brought her into the hospital. Found to be very hypertensive in the ED and was placed initially on nicardipine drip -at this time the patient's symptoms have resolved -main differentials for initial symptoms to be from Hypertensive crisis (hypertensive urgency) or Transient Ischemic attack -as per neurology service, patient can be on aspirin 81 mg and high intensivity statin (on atorvastatin 40 mg daily) -will try to better optimize patient's blood pressure to target SBP goal< 140 mm Hg, DBP< 90 mm Hg, as patient is off nicardipine drip will continue home dose lisinopril 20 mg daily and also started on amlodipine 10 mg daily on 06/20/19 -patient is sinus on telemetry monitoring and echocardiogram with no atrial septal defect -will check TSH -continue patient's eye drops Left Vertebral artery stenosis -CTA head and neck shows high grade left vertebral stenosis (this is likely incidental as per neurology) -carotid arteries are widely patent as per imaging DVT ppx: Lovenox 40 mg daily Subjective Patient at mental and functional baseline. Blood pressure has been noted to be elevated today. no focal motor deficits. denies numbness and denies tingling sensations today. breathing on room air. no shortness of breath. no pain. no headache. no dizziness. Physical Exam Constitutional: comfortable Eyes: PERRL, conjunctivae normal, anicteric sclerae EOM intact bilaterally ENMT: external ear and nose normal, oropharynx normal Respiratory: normal respiratory effort, lungs clear to auscultation Cardiovascular: RRR, no murmur, no edema Gastrointestinal (Abdomen): normal bowel sounds, soft, nontender, no hepatosplenomegaly Musculoskeletal: Head/Neck/Chest: normocephalic and head atraumatic Neurologic: PERRL, EOMI, accommodation nl, no face palsy, no dysarthria CN's II-XI intact bilaterally Psychiatric: A+Ox3, euthymic affect Results & Data Vital Signs (Past 12 Hours) Vital Signs Temp Pulse Pulse Resp BP Pulse Ox 06/20/19 17:24 154/76 H 06/20/19 16:50 177/89 H 06/20/19 15:51 36.2 C L 77 20 199/95 H 98 06/20/19 11:30 36.4 C L 66 18 172/90 H 98 06/20/19 08:00 69 06/20/19 07:51 36.3 C L 83 19 177/92 H 97
[2019-06-20] MEDS: ENOXAPARIN INJ 40 MG/0.4 ML SYR SQ SCH (20:24)
[2019-06-20] MEDS ORDERED: COUGH DROP (SUGAR FREE) LOZ 24 LOZ/1 BOX BUCCAL STA (20:33)
[2019-06-20] MEDS ORDERED: TAFLUPROST OP SCH (21:00)
[2019-06-21 06:58] LABS: Basophils # (auto) 0.01 K/uL (0-0.2); Basophils % (auto) 0.2 %; Eosinophils # (auto) 0.02 K/uL (0-0.5); Eosinophils % (auto) 0.3 %; Hematocrit (blood only) 36.1 % (37-47); Hemoglobin 12.3 g/dL (12.0-16.0); Immature Granulocytes # (auto) 0.02 K/uL (0.00-0.02); Immature Granulocytes % (auto) 0.3 %; Lymphocytes # (auto) 2.43 K/uL (1.2-3.4); Lymphocytes % (auto) 41.2 %; Mean Corpuscular Hgb Conc 34.1 g/dL (32-36); Mean Corpuscular Volume 79.3 fL (80-100); Mean Platelet Volume 9.4 fL (7.4-10.4); Monocytes # (auto) 1.85 K/uL (0.11-0.59); Monocytes % (auto) 31.4 %; Neutrophils # (auto) 1.57 K/uL (1.4-6.5); Neutrophils % (auto) 26.6 %; Platelet Count 187 K/uL (130-400); RDW Coefficient of Variation 14.2 % (11.5-14.5); RDW Standard Deviation 40.9 fL (36.4-46.3); Red Blood Count 4.55 M/uL (4.2-5.4)
[2019-06-21 07:27] LABS: BUN Creatinine Ratio 21.6 (10-20); Calcium 8.9 mg/dl (8.5-10.1); Est GFR (African American) 80.6; Est GFR (Non-African American) 69.5
[2019-06-21] MEDS: AMLODIPINE BESYLATE 5 MG TAB PO SCH (08:26)
[2019-06-21] MEDS: ENOXAPARIN INJ 40 MG/0.4 ML SYR SQ SCH (08:27)
[2019-06-21] MEDS: PREDNISOLONE ACETATE 1% OP SCH (08:27)
[2019-06-21] MEDS: ATORVASTATIN 40 MG TAB PO SCH (08:27)
[2019-06-21] MEDS: DORZOLAMIDE/TIMOLOL 22.3/6.8MG/ML 10 ML BTL OP SCH (08:27)
[2019-06-21] MEDS: ASPIRIN 81 MG ECTAB PO SCH (08:27)
[2019-06-21] MEDS ORDERED: LISINOPRIL 40 MG TAB PO SCH (09:00)
--- NOTE | 2019-06-21 11:56 | Hospitalist Progress Note ---
Date of Service June 21, 2019 Assessment & Plan (1) Hypertensive urgency: Hypertensive crisis (hypertensive urgency) causing Hypertensive encephalopathy at mental baseline, blood pressure controlled (2) TIA (transient ischemic attack): 88 year old female with PMH - chronic cough, hypertension, GERD, anxiety state, presents with stroke-like symptoms. She lives alone and is independent and still drives. She was in [place] talking to a neighbor when she started feeling dizzy. The neighbor told her she had a funny face and also had some questionable slurred speech, so they called her nephew and brought her into the hospital. Found to be very hypertensive in the ED and was placed initially on nicardipine drip -main differentials for initial symptoms to be from Hypertensive crisis (hypertensive urgency) causing Hypertensive encephalopathy or Transient Ischemic attack -the patient's symptoms have resolving on 06/19/19 and completely resolved as of 06/20/19 -blood pressure was better controlled with nicardipine drip which was stopped af ter the ED initial treatment and switched to prn Labetalol -patient has home blood pressure medications of lisinopril increased and newly started on amlodipine -as per neurology service, patient can be on aspirin 81 mg and high intensity statin (on atorvastatin 40 mg daily) -patient is sinus on telemetry monitoring and echocardiogram with no atrial septal defect -TSH normal -06/21/19: Discharge to home Patient's discharge day blood pressure is 162/88 on 06/21/19 which is much improved compared to admission day of 257/123 on 06/19/19 On discharge patient should continue to take medications and dosages as started in the hospital of amlodipine 10 mg daily, lisinopril 40 mg daily, atorvastatin 40 mg daily, aspirin 81 mg daily. Prescriptions sent electronically to [facility] [address], [place] [id number] Patient should continue to follow up with primary care doctor and strive to target SBP goal< 140 mm Hg, DBP< 90 mm Hg 06/26/2019 4:00 PM Provider Arianna Jaramillo DO Department [facility] 07/24/2019 11:20 AM Provider Leticia Wolff PA-C Department Neurology [facility] Left Vertebral artery stenosis -CTA head and neck shows high grade left vertebral stenosis (this is likely incidental as per neurology) -carotid arteries are widely patent as per imaging -monitor as outpatient DVT ppx: Lovenox 40 mg daily while inpatient Discharge day diagnosis Hypertensive crisis (hypertensive urgency) causing Hypertensive encephalopathy or Transient Ischemic attack Left Vertebral artery stenosis Subjective No headache. no dizziness. no slurred speech. no chest pain. no palpitations. no abdomen pain. no vomiting. no shortness of breath. breathing on room air. Physical Exam Constitutional: comfortable Eyes: PERRL, conjunctivae normal, anicteric sclerae EOM intact bilaterally ENMT: external ear and nose normal, oropharynx normal Respiratory: normal respiratory effort, lungs clear to auscultation Cardiovascular: RRR, no murmur, no edema Gastrointestinal (Abdomen): normal bowel sounds, soft, nontender, no hepatosplenomegaly Musculoskeletal: Head/Neck/Chest: normocephalic and head atraumatic Neurologic: PERRL, EOMI, accommodation nl, no face palsy, no dysarthria CN's II-XI intact bilaterally Psychiatric: A+Ox3, euthymic affect Results & Data Vital Signs (Past 12 Hours) Vital Signs Temp Pulse Pulse Resp BP BP Pulse Ox 06/21/19 11:39 36.3 C L 65 16 162/88 H 154/76 H 97 06/21/19 11:00 36.3 C L 65 16 162/88 H 97 06/21/19 08:00 63 06/21/19 07:09 36.5 C 68 16 175/94 H 97 06/21/19 02:36 36.5 C 68 18 143/72 H 94
[2019-06-21] MEDS ORDERED: STROKE PATIENT DISCHARGE STA (12:04)
--- NOTE | 2019-06-21 12:09 | Discharge Summary ---
Date of Service June 21, 2019 Admission HPI Per Admitting Provider CHIEF COMPLAINT: Stroke-like symptoms. HISTORY OF PRESENT ILLNESS: This is an 88-year-old female with past medical history significant for chronic cough, hypertension, GERD, anxiety state, presents with stroke-like symptoms. The patient lives alone. She says she is independent. She drives car. Actually, she went to [place] in the car and she moved her stuff in the house today. She was talking to her neighbor when suddenly she started feeling extremely dizzy. The neighbor told her she had a funny face and also had some questionable slurred speech, so they called her nephew and brought her into the hospital. In the ER, her blood pressure was very high sbp in 250's. She was started on nicardipine drip and her symptoms resolved. Currently, she is talking fine. Speech is clear. CT of the head was unremarkable. CTA of the brain showed high-grade stenosis of the origin of left vertebral artery. CTA of the neck was unremarkable. Currently, blood pressure improved with nicardipine drip. Currently, patient's speech is clear. Denies any headache, no blurred vision, no earache, no sore throat, no difficulty swallowing, no chest pain, no shortness of breath. She has some dry cough. No nausea, no abdominal pain. Normal bowel and bladder movements. She is ambulating in the ER to go to bathroom, resting comfortably. ALLERGIES: BACITRACIN, NEOMYCIN, POLYMYXIN B. PAST MEDICAL HISTORY: As mentioned above. PAST SURGICAL HISTORY: Hemorrhoidectomy and banding, appendectomy, sinus surgery, ultrasound-guided breast biopsy. MEDICATIONS: The patient is on lisinopril 20 mg p.o. daily, Cosopt 1 drop both eyes b.i.d., Xalatan 1 drop each eye at bedtime, chlorpheniramine 4 mg 1 tablet q.i.d. FAMILY HISTORY: Significant for father has hypertension and lung disorder. Sister has hypertension. SOCIAL HISTORY: , living alone. No smoking, no alcohol, no drug use. REVIEW OF SYMPTOMS: As per HPI. Rest of review of systems is negative. Admission Exam Per Admitting Provider PHYSICAL EXAMINATION: GENERAL: The patient is alert and oriented, not in acute distress. VITAL SIGNS: Temperature 36.6, pulse 89, respiratory rate 20, currently blood pressure 154/87, when she came in was 246/119, oxygen 99% room air. HEENT: No pallor, no icterus. Pupils equal, round, reactive to light. NECK: No JVD, no neck masses, no carotid bruits. CARDIOVASCULAR: S1, S2 heard, regular rate and rhythm, no murmur, no gallop. RESPIRATORY SYSTEM: Normal AP diameter. No thyromegaly. No wheezing, no crackles. ABDOMEN: Soft, bowel sounds present, nontender. No distention. CENTRAL NERVOUS SYSTEM: Cranial nerves II-XII grossly intact. Power 4/5 in all extremities. Coordination was normal. Ogadjw-uh-cuvw test normal. No pronator drift. EXTREMITIES: No edema, no erythema. Principal Diagnosis Hypertensive crisis (hypertensive urgency) causing Hypertensive encephalopathy or Transient Ischemic attack Left Vertebral artery stenosis Discharge Exam Constitutional comfortable Eyes PERRL, conjunctivae normal, anicteric sclerae EOM intact bilaterally ENMT external ear and nose normal, oropharynx normal Respiratory normal respiratory effort, lungs clear to auscultation Cardiovascular RRR, no murmur, no edema Gastrointestinal (Abdomen) normal bowel sounds, soft, nontender, no hepatosplenomegaly Musculoskeletal Head/Neck/Chest: normocephalic and head atraumatic Neurologic PERRL, EOMI, accommodation nl, no face palsy, no dysarthria CN's II-XI intact bilaterally Psychiatric A+Ox3, euthymic affect Discharge Data Allergies Allergy/AdvReac Type Severity Reaction Status Date / Time bacitracin Allergy Unknown Anaphylaxis Verified 06/19/19 20:39 neomycin Allergy Unknown Anaphylaxis Verified 06/19/19 20:39 polymyxin B Allergy Unknown Anaphylaxis Verified 06/19/19 20:39 Consultations 06/19/19 20:56 ED Decision to Admit Stat 06/20/19 00:51 Consult Case Management - Discharge Planning Routine Consult Case Management - Discharge Planning Routine 06/20/19 08:00 Consult Neurology Routine Ordered Studies 06/19/19 19:36 CT angio head w con Stat CT angio neck with con Stat CT head/brain wo con Stat 06/20/19 00:51 MR brain wo/w con Routine Hospital Course (1) Hypertensive urgency: Hypertensive crisis (hypertensive urgency) causing Hypertensive encephalopathy at mental baseline, blood pressure controlled (2) TIA (transient ischemic attack): 88 year old female with PMH - chronic cough, hypertension, GERD, anxiety state, presents with stroke-like symptoms. She lives alone and is independent and still drives. She was in [place] talking to a neighbor when she started feeling dizzy. The neighbor told her she had a funny face and also had some questionable slurred speech, so they called her nephew and brought her into the hospital. Found to be very hypertensive in the ED and was placed initially on nicardipine drip -main differentials for initial symptoms to be from Hypertensive crisis (hypertensive urgency) causing Hypertensive encephalopathy or Transient Ischemic attack -the patient's symptoms have resolving on 06/19/19 and completely resolved as of 06/20/19 -blood pressure was better controlled with nicardipine drip which was stopped after the ED initial treatment and switched to prn Labetalol -patient has home blood pressure medications of lisinopril increased and newly started on amlodipine -as per neurology service, patient can be on aspirin 81 mg and high intensity statin (on atorvastatin 40 mg daily) -patient is sinus on telemetry monitoring and echocardiogram with no atrial septal defect -TSH normal -06/21/19: Discharge to home Patient's discharge day blood pressure is 162/88 on 06/21/19 which is much improved compared to admission day of 257/123 on 06/19/19 On discharge patient should continue to take medications and dosages as started in the hospital of amlodipine 10 mg daily, lisinopril 40 mg daily, atorvastatin 40 mg daily, aspirin 81 mg daily. Prescriptions sent electronically to [facility] [address], [place] [id number] Patient should continue to follow up with primary care doctor and strive to target SBP goal< 140 mm Hg, DBP< 90 mm Hg 06/26/2019 4:00 PM Provider Arianna Jaramillo DO Department [facility] 07/24/2019 11:20 AM Provider Leticia Wolff PA-C Department Neurology [facility] Left Vertebral artery stenosis -CTA head and neck shows high grade left vertebral stenosis (this is likely incidental as per neurology) -carotid arteries are widely patent as per imaging -monitor as outpatient DVT ppx: Lovenox 40 mg daily while inpatient Discharge day diagnosis Hypertensive crisis (hypertensive urgency) causing Hypertensive encephalopathy or Transient Ischemic attack Left Vertebral artery stenosis Total Time Total Time Spent Total Time Spent (In Minutes): 40 minutes Total Time Includes: Examination of the Patient, Discharge Planning, Medication Reconciliation and Communication With Other Providers Discharge Plan Discharge Items Patient Disposition: Home - Self-Care Reason For Visit: STROKE LIKE SYMPTOMS Discharge Diagnosis: Hypertensive crisis (hypertensive urgency) causing Hypertensive encephalopathy or Transient Ischemic attack; Left Vertebral artery stenosis Condition: Good Discharge Goals: Improve disease control and Improve function Activity: Resume your previous activity Non-emergency contact: Primary Care Provider and Neurologist Call non-emergency contact if: you have any medication questions Follow-up/Referrals: Quyen Jimenez DO [Primary Care Provider] - Diet: Heart Healthy Addtl Provider Instructions: Discharge to home Patient's discharge day blood pressure is 162/88 on 06/21/19 which is much imp roved compared to admission day of 257/123 on 06/19/19 On discharge patient should continue to take medications and dosages as started in the hospital of amlodipine 10 mg daily, lisinopril 40 mg daily, atorvastatin 40 mg daily, aspirin 81 mg daily. Prescriptions sent electronically to [facility] [address], [place] [id number] Patient should continue to follow up with primary care doctor and strive to target SBP goal< 140 mm Hg, DBP< 90 mm Hg 06/26/2019 4:00 PM Provider Arianna Jaramillo DO Department [facility] 07/24/2019 11:20 AM Provider Leticia Wolff PA-C Department Neurology [facility] Left Vertebral artery stenosis -CTA head and neck shows high grade left vertebral stenosis (this is likely incidental as per neurology) -carotid arteries are widely patent as per imaging -monitor as outpatient Prescriptions: New atorvastatin 40 mg Tablet 40 mg PO QAM 30 Days Qty: 30 RF: 0 aspirin [Ecotrin Low Strength] 81 mg Tablet,Delayed Release (Dr/Ec) 81 mg PO QAM 30 Days Qty: 30 RF: 0 lisinopril [Zestril] 40 mg Tablet 40 mg PO QAM 30 Days Qty: 30 RF: 0 amlodipine 10 mg tablet 10 mg PO QAM 30 Days Qty: 30 RF: 0 Continued Zioptan (PF) 0.0015 % Dropperette 1 drp OPHTHALMIC (EYE) PM RF: 0 dorzolamide-timolol (PF) 2-0.5 % Drops 1 drp OPHTHALMIC (EYE) BID RF: 0 prednisolone acetate [Pred Forte] 1 % drops,suspension 1 drp OPB QID RF: 0 Discontinued lisinopril 20 mg Tablet 20 mg PO DAILY RF: 0 Stand-Alone Forms: [facility] Discharge Orders: Discharge Order (Routine); Ordered 06/21/19 Ordered By: Jj Martinez Admission Data Admit Date/Time: 06/19/19 23:44 Attending Provider: Jj Martinez Admit Provider: Maikel Smith Primary Care Provider: Quyen Jimenez Other Providers: Maikel Smith ; Leticia Wolff ; Adam Adame Kathleen ; Alan Campos Service: Telemetry Other Interventions: Discharge Summary Assessment (RN) Last Done: 06/21/19 11:39
--- NOTE | 2019-06-21 12:57 | Pharmacy Report ---
Pharmacist Stroke Counseling - Date of Service June 21, 2019 - Scope: Pharmacy has been consulted to provide medication discharge counseling for this patient admitted with transient ischemic attack as per the Pharmacist Discharge Counseling for Stroke Patients Protocol. - Medications on Discharge: Home Medications Medication Instructions Recorded Confirmed Zioptan (PF) 1 drp OPHTHALMIC (EYE) PM 12/29/18 06/19/19 dorzolamide-timolol (PF) 1 drp OPHTHALMIC (EYE) BID 12/29/18 06/19/19 prednisolone acetate [Pred Forte] 1 drp OPB QID 06/19/19 06/19/19 New Rx's Medication Instructions Recorded amlodipine 10 mg PO QAM 30 Days #30 tab 06/21/19 aspirin [Ecotrin Low Strength] 81 mg PO QAM 30 Days #30 tab 06/21/19 atorvastatin 40 mg PO QAM 30 Days #30 tab 06/21/19 lisinopril [Zestril] 40 mg PO QAM 30 Days #30 tab 06/21/19 - Action: The above medications, specifically ones for stroke treatment/prophylaxis, have been reviewed in detail with the patient and her neighbor prior to discharge. This includes indication, common adverse reactions, drug interactions, and medication administration. Medication counseling has been employed using the teach-back method to ensure understanding. - Outcome: The patient and patient's neighbors have demonstrated understanding of the medications. Please note, they are aware that the pharmacist will call them within 72 hours post-discharge to confirm that the appropriate medications are being taken and answer any further medication related questions the patient might have at that time. Contact information Individual to be contacted: Patient Phone number: [phone] Best time to call: morning or after 2pm when she's done watching her TV shows. 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 Reviewed her medication changes extensively. She understands that her Lisinopril dose will be doubled - she really wants to finish her 20mg tablets that she recently filled. We reviewed how to take 2 of those to = new 40mg dose. Reviewed with her placing the new 40mg tablets away until the 20mgs are finished and then that she will ONLY need 1 of the 40mg tablets. She was able to repeat all of this back to me. Reviewed Aspirin, Atorvastatin, and Amlodipine extensively. Patient's nephew Adam is coming to pick her up, RN Sana will review her discharge instructions with him in the room. Patient's neighbor was also there with her while I counseled her and said that she would also go over this evening to check on her and review things with her. Patient took the medication/pill box from me but said she would likely not use it. I told her she could keep it and if it was easier to fill once a week instead of opening all of her bottles daily she could switch over to it later. She is doing a great job taking care of herself at 88 years old. Patient is able to live alone and give herself her own eye drops. Thank you for allowing pharmacy to be involved in the care of this patient. Please call [phone] or [phone] with any additional questions
--- NOTE | 2019-06-22 14:38 | Pharmacy Report ---
Pharmacist Post D/C Phone Note - Phone Note: Date of phone call: June 22, 2019. Individual with whom pharmacist spoke to: ROGER Franco BECKMAN The following questions were reviewed during the phone call with responses listed below each: Can you tell me the medications that you are currently taking as well as when and how you take each medication? -See Table Below, verified patient is taking 40mg of Lisinopril, not old 20mg tablets. When have you missed any doses of your medications? - None What side effects are you having from your medications, specifically, the new medications you were started on? - None What questions do you have about your medications? - Patient was wondering if it was OK to take her medications all at the same time, in the morning with Boost shakes - ensured patient that this was OK to do. What problems are you having obtaining your medications? - None When is your next appointment with your primary care doctor? - Tuesday. Additional comments: - Patient states she was feeling some lightheadedness this morning when she first woke up but feels better now and had a great night sleep at home. - Home health nurse came at 1100, BP was 143/?, but RN said it was a little high it was much better than what it had been before. - Sister in law and neighbor have both come over to check on her today. - Medications were put into her pill box by caregiver who is an RN, patient started Lisinopril 40mg PO daily and has put the 20mg away so she does not mix them up. As per the Pharmacist Discharge Counseling for Stroke Patients Protocol, this phone call has been completed within 72 hours of discharge. Thank you for allowing us to be involved in the care of this patient. - Home Medications: Home Medications Medication Instructions Recorded Confirmed Zioptan (PF) 1 drp OPHTHALMIC (EYE) PM 12/29/18 06/19/19 dorzolamide-timolol (PF) 1 drp OPHTHALMIC (EYE) BID 12/29/18 06/19/19 prednisolone acetate [Pred Forte] 1 drp OPB QID 06/19/19 06/19/19 New Rx's Medication Instructions Recorded amlodipine 10 mg PO QAM 30 Days #30 tab 06/21/19 aspirin [Ecotrin Low Strength] 81 mg PO QAM 30 Days #30 tab 06/21/19 atorvastatin 40 mg PO QAM 30 Days #30 tab 06/21/19 lisinopril [Zestril] 40 mg PO QAM 30 Days #30 tab 06/21/19
--- NOTE | 2019-06-25 15:03 | Coding Query ---
CODING QUERY To promote full compliance with coding requirements relating to patient care, provider participation is requested in all cases of slasher tender helper uncertainty. Please assist us with the question(s) below: Coding Question(s): Patient admitted with dizziness and questionable slurred speech. HTN urgency on admission with BP higher 250 systolic. Nicardepine IV given in ED which thereafter symptoms stopped. DS mentions HTN urgency causing HTN encephalopathy or TIA. Please document, if known or suspected the etiology for the patients' admitting symptoms of HTN urgency, slurred speech and dizziness - reason for admission. Thanks for your help! Mc Paul CODING MANAGER [facility] Physician's Response(s): Hypertensive crisis (hypertensive urgency) causing Hypertensive encephalopathy or Transient Ischemic attack (with no radiographic evidence of brain infraction) Principal Diagnosis: "that condition established after study, to be chiefly responsible for occasioning the admission of the patient to the hospital for care." Co-Existing Principal Diagnosis: "when two or more diagnoses equally meet the criteria for principal diagnosis as determined by the circumstances of admission, diagnostic work up, and/or therapy provided, and the Alphabetic Index, Tabular List, or another coding guideline does not provide sequencing direction, any one of the diagnoses may be sequenced first." "When the physician has documented what appears to be a current diagnosis in the body of the record, but has not included the diagnosis in the final diagnostic statement, the physician should be asked whether the diagnosis should be added." (Source [facility] 2 QTR90. p3-4) ANDREW
== END 2019-06-21 13:20 | disposition home or self-care (01) | DRG 69 ==
LOC: ED 19:16 → SUATTDRO 23:44 → 2S 23:44
DX: F41.9 Anxiety disorder, unspecified; I16.0 Hypertensive urgency; G45.9 Transient cerebral ischemic attack, unspecified; I67.4 Hypertensive encephalopathy; Z88.1 Allergy status to other antibiotic agents; I67.2 Cerebral atherosclerosis; Z79.899 Other long term (current) drug therapy; I10 Essential (primary) hypertension; H40.9 Unspecified glaucoma; R42 Dizziness and giddiness; K21.9 Gastro-esophageal reflux disease without esophagitis; R47.81 Slurred speech